=== PATIENT | female | born 1990 | race Caucasian/White ===

== ENCOUNTER 2018-11-10 05:52 | Day surgery (SDC) | payer OTHER ==
[~2018-11-10 05:52] MED LIST: LIDOCAINE 1% 2 ML INJ ID PRN; LR 1,000 ML IV ONE; ceFAZolin 2 GM/DEXTROSE 100 ML IV ONE
--- NOTE | 2018-11-10 06:49 | PDHPUP ---
History & Physical Update H&P update statement: This history and physical update is based on an assessment of the patient which was completed after admission or registration (within 24 hours), but prior to the surgery/procedure. H&P update: H&P reviewed & patient examined, no change in patient's condition since H&P completed
[2018-11-10] MEDS ORDERED: SCOPOLAMINE HYDROBROMIDE 1 MG/3 DAYS PATCH TD ONE (06:52)
[2018-11-10] MEDS ORDERED: MIDAZOLAM 2 MG/2 ML VIAL IVP ONE (06:52)
--- NOTE | 2018-11-10 06:52 | PDANEPAE ---
ANE Past Medical History - Cardiovascular History Hx Hypertension: No Hx Arrhythmias: No Hx Chest Pain: No Hx Coronary Artery / Peripheral Vascular Disease: No Hx CHF / Valvular Disease: No Hx Palpitations: No - Pulmonary History Hx COPD: No Hx Asthma/Reactive Airway Disease: No Hx Recent Upper Respiratory Infection: No Hx Oxygen in Use at Home: No Hx Sleep Apnea: No Sleep Apnea Screening Result - Last Documented: Negative - Neurologic History Hx Cerebrovascular Accident: No Hx Seizures: No Hx Dementia: No - Endocrine History Hx Diabetes: No - Renal History Hx Renal Disorders: No - Liver History Hx Hepatic Disorders: No - Neurological & Psychiatric Hx Hx Neurological and Psychiatric Disorders: No - Cancer History Hx Cancer: No - Congenital Disorder History Hx Congenital Disorders: No - GI History Hx Gastrointestinal Disorders: Yes Gastrointestinal History Comment: abd pain with issues currently - Other Health History Other Health History: shoulders can dislocate easily when arms over head - Chronic Pain History Chronic Pain: Yes (bilateral shoulders) - Surgical History Prior Surgeries: arm dislocation repair. throat abscess drained then went into tonsillectomy ANE Review of Systems Review of Systems: - Exercise capacity METS (RN): 4 METS ANE Patient History - Allergies Allergies/Adverse Reactions: No Known Allergies Allergy (Verified 11/09/18 15:39) - Home Medications Home Medications: Herbals/Supplements -Info Only 11/09/18 [Last Taken 10/26/18] - NPO status NPO Since - Liquids (Date): 11/09/18 NPO Since - Liquids (Time): 22:00 NPO Since - Solids (Date): 11/09/18 NPO Since - Solids (Time): 22:00 - Smoking Hx Smoking Status: Never smoked - Family Anes Hx Family Hx Anesthesia Complications: none ANE Labs/Vital Signs - Vital Signs Blood Pressure: 106/69 Heart Rate: 60 Respiratory Rate: 18 O2 Sat (%): 97 Height: 175.26 cm Weight: 68.039 kg ANE Physical Exam - Airway Neck exam: FROM Mallampati Score: Class 2 Mouth exam: normal dental/mouth exam - Pulmonary Pulmonary: clear to auscultation - Cardiovascular Cardiovascular: regular rate and rhythym - ASA Status ASA Status: I, II ANE Anesthesia Plan Anesthesia Plan: general endotracheal anesthesia
[2018-11-10] MEDS ORDERED: BUPIVACAINE/EPI 0.5% 30 ML SDV ONE (06:58)
[2018-11-10] MEDS ORDERED: fentaNYL 100 MCG/2 ML INJ ONE (07:13)
[2018-11-10] MEDS ORDERED: PROPOFOL 200 MG/20 ML VIAL ONE (07:13)
[2018-11-10] MEDS ORDERED: DEXAMETHASONE 4 MG/ML VIAL ONE (07:18)
[2018-11-10] MEDS ORDERED: ROCURONIUM 50 MG/5 ML VIAL ONE (07:18)
[2018-11-10] MEDS ORDERED: METOCLOPRAMIDE 10 MG/2 ML VIAL ONE (07:33)
[2018-11-10] MEDS ORDERED: HYDROmorphONE/DILAUDID 2 MG/ML INJ ONE (07:45)
[2018-11-10] MEDS ORDERED: KETOROLAC 30 MG/1 ML SDV ONE (08:00)
[2018-11-10] MEDS ORDERED: ONDANSETRON 4 MG/2 ML VIAL ONE (08:01)
[2018-11-10] MEDS ORDERED: oxyCODONE IR 5 MG TAB PO PRN (08:10)
[2018-11-10] MEDS ORDERED: fentaNYL 100 MCG/2 ML INJ IVP PRN (08:10)
[2018-11-10] MEDS ORDERED: DIAZEPAM 5 MG/ML 1 ML SYR IVP PRN (08:10)
[2018-11-10] MEDS ORDERED: NALOXONE HCL 0.4 MG/ML INJ IVP PRN (08:10)
[2018-11-10] MEDS ORDERED: ACETAMINOPHEN 500 MG TAB PO PRN (08:10)
[2018-11-10] MEDS ORDERED: HYDROmorphONE/DILAUDID 2 MG/ML INJ IVP PRN (08:10)
[2018-11-10] MEDS ORDERED: LR 500 ML IV PRN (08:10)
[2018-11-10] MEDS ORDERED: PROMETHAZINE HCL 25 MG/ML INJ IVP PRN (08:10)
[2018-11-10] MEDS ORDERED: ALBUTEROL 3 ML DEYVIAL IH PRN (08:10)
[2018-11-10] MEDS ORDERED: ONDANSETRON 4 MG/2 ML VIAL IVP PRN (08:10)
[2018-11-10] MEDS ORDERED: MEPERIDINE 25 MG/0.5 ML AMP IVP PRN (08:10)
[2018-11-10] MEDS ORDERED: GLYCOPYRROLATE 0.2 MG/1 ML VIAL ONE ×3 (08:12→08:16)
--- NOTE | 2018-11-10 08:30 | POSTOPPROG ---
Post Op Note Date of Operation: 11/10/18 Surgeon: Puneet Martinez Anesthesiologist: Do Anesthesia: GET(General Endotracheal) Pre-op Diagnosis: appendicitis Post-op Diagnosis: same Procedure: laparoscopic appendectomy Findings: dilated, inflamed appendix. Normal ovaries/tubes/uterus Inf/Abcess present in the surg proc area at time of surgery?: No EBL: Minimal Specimen(s): appendix
[2018-11-10 10:15] VITALS: BP 110/76
--- NOTE | 2018-11-10 13:11 | GOP ---
[f rep st] OPERATIVE REPORT DATE OF OPERATION: 11/10/2018 SURGEON: Puneet Martinez MD [facility] HISTORY PROFESSOR: None. ANESTHESIA: General endotracheal. ANESTHESIOLOGIST: Karon Lei MD. PREOPERATIVE DIAGNOSIS: Appendicitis. POSTOPERATIVE DIAGNOSIS: Appendicitis. PROCEDURE PERFORMED: Laparoscopic appendectomy with abdominal exploration. FINDINGS: Patient had a dilated, indurated appendix consistent with appendicitis. Question of wheth er or not there was a mucocele at the tip. It appeared as though the appendix was dipping into the p luis carlos causing secondary inflammation of both the right ovary and tube which were overall normal appea ring. SPECIMENS: Appendix. ESTIMATED BLOOD LOSS: 5 cc. DESCRIPTION OF PROCEDURE: The patient was greeted in the preoperative suite. Once again, risks, paul efits, and alternatives were discussed. Consent was signed. She was then brought back to the operat ceasar suite, placed on the OR table in supine position. After all anesthesia machines including SCDs w ere on and functioning, a [employer] time-out was performed. Patient was then extubat ed without incident. Her abdomen was prepped and draped in typical sterile fashion. I commenced the procedure by creating an infraumbilical cutdown through which the Veress needle was passed. I achie juan c pneumoperitoneum to 15 mmHg, which was well tolerated by the patient. Once successfully in the a bdomen, I placed a 12 mm Visiport in the infraumbilical position. I placed two additional 5 mm troca rs, one in the suprapubic and one in the left lower quadrant. I traced the taeniae inferiorly and id entified the base of the appendix. The appendix was dilated and indurated dipping into the pelvis, s omewhat adherent to the right adnexa. It was successfully dissected off. A window was created at th e base of the appendix, and it was successfully amputated from the cecal base. In the same fashion, an Endo-COLTON white load stapler was used to take the mesoappendix. It was then placed in an EndoCatch bag and removed. I interrogated the reproductive structures in the patient's pelvis. The right tub e and ovary, left tube and ovary, and uterus were all normal appearing. There was some secondary inf lammation of the right tube from the appendix being adjacent to it, but nothing that was clearly path ologic. I irrigated the right lower quadrant and pelvis with 1 L sterile saline noting clear effluen t in the suction canister. I inspected my staple lines, which were clean dry and hemostatic. I then infiltrated local anesthesia into the port sites which were then removed. I evacuated pneumoperiton eum. I closed my infraumbilical port site with an 0 Vicryl stitch noting excellent fascial reapproxi mation. The skin was then closed with Monocryl. Dermabond was placed. Patient was then extubated i n the operative suite and taken to PACU in satisfactory condition. DRAINS: None. COUNTS: All counts were reported as correct x2. /[id number]/MODL
== END 2018-11-10 10:57 | disposition home or self-care (01) ==
LOC: F3E 05:52 → FSGY 05:52 → UNDOADMOB 05:52 → EDSTATUS 07:15 → FSGY 10:57 → UNDODISOB 10:57
PROVIDERS: ATTEND Surgery
PROC: 0DTJ4ZZ Resection of Appendix, Percutaneous Endoscopic Approach (ICD-10-PCS; principal; 2018-11-10 07:15)
DX: K35.80 Unspecified acute appendicitis (principal); M24.811 Other specific joint derangements of right shoulder, not elsewhere classified; M24.812 Other specific joint derangements of left shoulder, not elsewhere classified
CPT/HCPCS: J0690; J1100; J1170; J1885; J2250; J2405; J2704; J2765; J3010